=== PATIENT | male | born 1985 | race Caucasian/White ===

== ENCOUNTER 2020-04-19 08:45 | Emergency (ER) | payer MEDICAID ==
[2020-04-19] MEDS ORDERED: Ondansetron 4 MG Tab.DIS PO ONE (09:06)
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
== END 2020-04-19 10:30 | disposition home or self-care (01) ==
LOC: JD.ED 08:45
DX: S00.83XA Contusion of other part of head, initial encounter (principal); S40.212A Abrasion of left shoulder, initial encounter; S00.81XA Abrasion of other part of head, initial encounter; J45.909 Unspecified asthma, uncomplicated; Y04.0XXA Assault by unarmed brawl or fight, initial encounter
CPT/HCPCS: 99284; A9270; 99283